=== PATIENT | male | born 1965 | race Caucasian/White ===

== ENCOUNTER 2019-10-07 06:17 | Outpatient (CLI) | payer BC, OTHER ==
[2019-10-07 10:31] VITALS: BMI 37.3
[2019-10-07 11:17] LABS: #Eosinphils 0.1 thou/uL (0.0-0.7); #Lymphocytes 1.5 thou/uL (1.20-3.40); #Monocytes 0.6 thou/uL (0.11-0.59); #Neutrophils 4.9 thou/uL (1.40-6.50); %Basophils 0.2 % (0.0-1.0); %Eosinophils 1.3 % (0.0-10.0); %Lymphocytes 21.5 % (21.0-51.0); %Monocytes 8.5 % (0.0-10.0); %Neutrophils 68.6 % (42.0-75.0); Mean Corpuscular HGB CONC 34.6 g/dL (32.0-36.0); Mean Corpuscular Hemoglobin 32.4 pg (27.0-31.0); Mean Corpuscular Volume 93.7 fL (78.0-98.0); Mean Platelet Volume 7.9 fL (7.4-10.4); Platelet Count 238 thou/uL (130-400); Red Blood Cell (RBC) Count 4.93 mill/uL (4.70-6.10); White Blood Cell (WBC) Count 7.1 thou/uL (4.8-10.8)
[2019-10-07 11:24] LABS: INR-International Normal Ratio 1.4; Prothrombin Time 17.4 sec (12.0-14.7)
[2019-10-07 11:25] LABS: PTT 34.4 SEC (22.9-36.1)
[2019-10-07 11:37] LABS: Anion Gap 15 mmol/L (10-20); BUN (Urea Nitrogen) 23 mg/dL (8.4-25.7); Calc. Creatinine Clearance 153 mL/min (70-130); Calcium 9.1 mg/dL (7.8-10.44); Carbon Dioxide 21 mmol/L (22-29); Chloride 108 mmol/L (98-107); Estimated GFR-MDRD 87; Glucose 95 mg/dL (70-105); Potassium 4.5 mmol/L (3.5-5.1); Sodium 139 mmol/L (136-145)
[2019-10-07 17:21] LABS: SARS-CoV-2 MS2 Positive; SARS-CoV-2 N Gene Negative; SARS-CoV-2 S Gene Negative; SARS-CoV-2 orf1ab Negative
== END 2019-10-07 06:18 | disposition home or self-care (01) ==
LOC: LABBT 06:17
PROVIDERS: ATTEND Internal Medicine Cardiovascular Disease
DX: Z01.818 Encounter for other preprocedural examination (principal); Z11.59 Encounter for screening for other viral diseases; I48.91 Unspecified atrial fibrillation
CPT/HCPCS: 80048; 85025; 85610; 85730; 87635; 93005; 93010; U0003

== ENCOUNTER 2019-10-12 05:41 | Observation (INO) | payer BC ==
[2019-10-12] MEDS ORDERED: Heparin 10,000 UNITS/1 ML VIAL ONE ×2 (07:14→09:17)
[2019-10-12] MEDS ORDERED: Fentanyl 100 MCG/2 ML VIAL ONE ×4 (07:35→12:18)
[2019-10-12] MEDS ORDERED: Midazolam HCl 2 mg/2 ml Vial ONE (07:35)
[2019-10-12] MEDS ORDERED: Famotidine/PF 20 mg/2ml Vial ONE (07:37)
[2019-10-12] MEDS ORDERED: Phenylephrine 10 MG/ML VIAL ONE (08:15)
[2019-10-12] MEDS ORDERED: Heparin 25,000 units/D5W 500 ML ONE (09:17)
[2019-10-12] MEDS ORDERED: Isoproterenol 0.2 MG/1 ML AMP ONE (09:17)
[2019-10-12] MEDS ORDERED: Protamine Sulfate 50 MG/5 ML VIAL ONE ×2 (11:18→11:28)
[2019-10-12 13:31] VITALS: BMI 40.1
[2019-10-12] MEDS ORDERED: Furosemide 40 MG TAB PO PRN (13:38)
[2019-10-12] MEDS ORDERED: Potassium Chloride 20 MEQ TAB PO PRN (13:38)
[2019-10-12] MEDS ORDERED: Acetaminophen 325 MG TAB PO PRN (13:40)
[2019-10-12] MEDS ORDERED: Calcium Carbonate 500 MG ChewTAB PO PRN (13:40)
--- NOTE | 2019-10-12 13:45 | OP ---
DATE OF PROCEDURE: 10/12/2019 PROCEDURE PERFORMED: Electrophysiology study and radiofrequency ablation. ADDITIONAL REFERRING PHYSICIAN: Abhijeet Chavira MD. REASON FOR PROCEDURE: Mr. Robb is a 54-year-old man with history of persisting atrial fibrillation since 07/2018, recurrent despite amiodarone with significant symptoms. He has a history of negative workup with normal LVEF at 65% to 70% and negative stress test, on chronic Xarelto anticoagulation, here for pulmonary venous isolation procedure. DESCRIPTION OF PROCEDURE: The patient received general anesthesia by Anesthesia specialist. The left and right femoral venous area was prepped, draped, and accessed under ultrasound guidance x2 on both sides. On the left side, an 11-Wolof sheath was used to advance an intracardiac echocardiogram probe to the right atrium and was used to monitor the pericardial space, catheter manipulation, as well as transseptal access throughout the case. Also from the left side, a duo-Deca catheter was advanced to the CS and the right atrial positions. On the right side, initially two 8-Wolof short sheaths were introduced, through which a ThermoCool SFST catheter was advanced to the right atrium. 3D map of the right atrium, His bundle, CS, and right ventricular positions were achieved. Following that, the short sheaths were exchanged to two SL1 sheath as well as a Kadoka 45-degree sheath, which was used to perform a transseptal puncture under fluoroscopic and ultrasound monitoring. Prior to the puncture, IV heparin bolus was delivered and IV heparin drip was also initiated. ACT was checked periodically and heparin drip was adjusted to keep ACT over 350 throughout the case. Following that, the ThermoCool SFST catheter and the Lasso catheter were advanced to the left atrium. 3D map of left atrium was obtained and 2 left-sided pulmonary veins and 3 right-sided pulmonary veins were noted with an extra small middle right pulmonary vein seen. Following that, a pulmonary venous isolation was performed, isolating all 5 pulmonary veins, also a roof line was placed and the inferior line to obtain posterior wall isolation. Throughout the posterior wall manipulation, an esophageal echocardiogram probe was used to monitor temperatures to avoid excessive heating. Any heating was controlled with extra irrigation at that site. A total of 85 lesions placed at 40 carr. Total duration of ablation was 24 minutes and 33 seconds. Baseline EP study was performed at this point. The ablation catheter was advanced to the LV and VA pacing was performed, but no VA conduction was noted. The baseline intervals were RR 798, IA 191 milliseconds, QRS 93 milliseconds, QT 420 millisecond, AH 73 milliseconds, HV 48 milliseconds. Antegrade Wenckebach cycle length was 330 milliseconds. The AV anna ERP was 400/220 milliseconds on Isuprel. Isuprel was delivered for 20 mcg for 10 minutes. Any reconnections were re-ablated. Burst atrial pacing was performed at 751 milliseconds, did not reinduce any atrial arrhythmias. The catheter was removed from the left side. Heparin was stopped and reversed with protamine. Long sheaths were exchanged to short sheaths under ultrasound guidance. Vascade closure was performed in all 4 femoral venous access sites. At the end of the case, also the intracardiac echo did not reveal change in the baseline, no pericardial effusion, and cardiac silhouette did not change on fluoroscopy. CONCLUSION: 1. Successful isolation of 2 left pulmonary veins and 3 right pulmonary veins with the middle right pulmonary vein was also noted. 2. Posterior wall isolation was achieved with a roof and an inferior line. 3. No evidence of accessory pathway and no dual AV anna physiology was noted. 4. No VA conduction. 5. Normal AV anna function and His-Purkinje function otherwise. PLAN: Resume anticoagulation. Monitor for recurrent arrhythmias. Job ID: [id number]
[2019-10-12] MEDS ORDERED: Ergocalciferol 1.25 MG(50,000 UNITS) CAP PO SCH (14:00)
[2019-10-12] MEDS: Ketorolac Tromethamine 30 MG/ML VIAL IVP PRN ×2 (14:45→23:48)
[2019-10-12] MEDS ORDERED: Ondansetron PF 4 MG/2 ML Vial ONE (15:51)
[2019-10-12] MEDS ORDERED: Lidocaine 1% PF 5 ML VIAL ONE (15:51)
[2019-10-12] MEDS ORDERED: Ketorolac Tromethamine 30 MG/ML VIAL ONE (15:51)
[2019-10-12] MEDS ORDERED: EPHEDRINE 25 MG/5 ML SYRINGE ONE (15:51)
[2019-10-12] MEDS ORDERED: Rocuronium Bromide 10 MG/ML (10ML VIAL) ONE (15:51)
[2019-10-12] MEDS ORDERED: PROPOFOL 200 MG/20 ML VIAL ONE (15:51)
[2019-10-12] MEDS ORDERED: Metoclopramide HCl 10 MG/2 ML VIAL ONE (15:51)
[2019-10-12] MEDS ORDERED: PHENYLEPHRINE-NS 100 MCG/ML 10 ML SYRINGE ONE (15:51)
[2019-10-12] MEDS ORDERED: metFORMIN 500 MG TAB PO SCH (17:00)
[2019-10-12] MEDS: Sucralfate 1 GM TAB PO SCH ×2 (17:50→20:54)
[2019-10-12] MEDS: Propranolol 40 MG TAB PO SCH (20:54)
[2019-10-12] MEDS ORDERED: Rivaroxaban 10 MG TAB PO SCH (21:00)
--- NOTE | 2019-10-12 22:14 | EKG ---
Test Reason : POST ABLATION Blood Pressure : / mmHG Vent. Rate : 077 BPM Atrial Rate : 077 BPM P-R Int : 178 ms QRS Dur : 122 ms QT Int : 440 ms P-R-T Axes : 066 -73 035 degrees QTc Int : 497 ms Normal sinus rhythm Left axis deviation Left bundle branch block Abnormal ECG When compared with ECG of 07-OCT-2019 10:55, QT has lengthened Confirmed by Roe ZAMBRANO ([id number]) on 10/12/2019 10:14:07 PM Referred By: KYARA Confirmed By:Roe ZAMBRANO
[2019-10-13] MEDS: Sucralfate 1 GM TAB PO SCH (08:50)
[2019-10-13] MEDS: Propranolol 40 MG TAB PO SCH (08:50)
[2019-10-13] MEDS ORDERED: Allopurinol 300 MG TAB PO SCH (09:00)
[2019-10-13] MEDS ORDERED: Empagliflozin 25 MG TAB PO SCH (09:00)
[2019-10-13] MEDS ORDERED: Venlafaxine XR 37.5 MG CAP PO SCH (09:00)
[2019-10-13] MEDS ORDERED: Ezetimibe 10 MG TAB PO SCH (09:00)
[2019-10-13] MEDS ORDERED: Alogliptin 25 MG TAB PO SCH (09:00)
[2019-10-13] MEDS ORDERED: Naproxen 500 MG TAB PO PRN (09:00)
[2019-10-13 11:16] VITALS: BP 110/64; TEMP 98.1
--- NOTE | 2019-10-13 20:24 | DIS ---
DATE OF ADMISSION: 10/12/2019 DATE OF DISCHARGE: 10/13/2019 DIAGNOSIS: Atrial fibrillation. PROCEDURES PERFORMED: Include electrophysiology study and radiofrequency ablation for atrial fibrillation, 24 minutes ablation time, successful isolation of two left pulmonary veins and three right pulmonary veins with middle right pulmonary vein also noted, posterior wall isolation achieved. SUBJECTIVE: Mr. Robb is a 54-year-old gentleman with a history of persistent atrial fibrillation since July of 2018 despite amiodarone and significant symptoms. He had a normal EF of 65% to 70%. Negative stress test. He is currently on anticoagulation with Xarelto and was taken to the pulmonary venous isolation procedure on the as detailed above. He has not had any postablation complications, but did have some bleeding at his groin site that required an additional 30 minutes of pressure held despite using a Vascade closure system. This morning, he feels well. He has been out of bed, walking. Groin site has been stable overnight. He is eager to discharge home. Mr. Robb feels well. He denies any heart racing, palpitations, chest pain, pressure, syncope, near syncope, stroke, stroke-like symptoms, shortness of breath, difficulty urinating, or pain or discomfort at groin sites. OBJECTIVE: VITAL SIGNS: Most recent vital signs; temperature 97.4, pulse 64, blood pressure 104/65, respirations 16, and oxygen 93% on room air. GENERAL: The patient is alert and oriented. Speech is clear. His affect is appropriate. No apparent distress. Resting comfortably in bed. NECK: Large. There is no obvious jugular venous distention. difficult to visualize with his habitus. HEART: Rate is irregularly irregular with crisp S1 and S2. LUNGS: Clear to auscultation throughout. ABDOMEN: Obese, soft, and nontender. EXTREMITIES: Warm and dry to touch. Well perfused without clubbing, cyanosis, or edema. NEUROLOGIC: Grossly intact. Nonfocal. Gait is stable. SKIN: Bilateral groin sites are stable with freshly replaced dressings. A small hematoma is palpable in the right groin, but has been present since postablation yesterday without change in size or growing. DISCHARGE MEDICATIONS: Medications at discharge include; 1. Vitamin D as previously taken 25 mg daily. 2. Zyloprim one tablet daily. 3. Naproxen p.r.n. 4. Effexor 2 tablets daily. 5. Xarelto 20 mg q.p.m. 6. Inderal 40 mg b.i.d. 7. Januvia 100 mg daily. 8. Glumetza 1000 mg q.p.m. 9. Protonix 40 mg daily. Prescriptions provided; 1. Protonix 40 mg daily for 30 days. 2. Carafate 1 g p.o. before meals and at bedtime x2 weeks. 3. Furosemide 40 mg p.o. p.r.n. edema, shortness breath, or fluid retention to be taken with potassium chloride 20 mEq. CONDITION AT DISCHARGE: Stable. DISCHARGE INSTRUCTIONS: Follow up in 6 weeks. No missed dose with Xarelto. Contact [facility] with any postablation concerns. Telemetry and EKG shows sinus rhythm. Job ID: [id number]
== END 2019-10-13 11:50 | disposition home or self-care (01) ==
LOC: CCL 05:41 → 2NO 11:18
PROVIDERS: ADMIT Internal Medicine Cardiovascular Disease; ATTEND Internal Medicine Cardiovascular Disease
PROC: 02583ZZ Destruction of Conduction Mechanism, Percutaneous Approach (ICD-10-PCS; principal; 2019-10-12)
PROC: 02K83ZZ Map Conduction Mechanism, Percutaneous Approach (ICD-10-PCS; 2019-10-12)
PROC: 4A023FZ Measurement of Cardiac Rhythm, Percutaneous Approach (ICD-10-PCS; 2019-10-12)
PROC: 4A0234Z Measurement of Cardiac Electrical Activity, Percutaneous Approach (ICD-10-PCS; 2019-10-12)
DX: I48.19 Other persistent atrial fibrillation (principal); Z79.01 Long term (current) use of anticoagulants; Z79.1 Long term (current) use of non-steroidal anti-inflammatories (NSAID); Z79.84 Long term (current) use of oral hypoglycemic drugs; Z79.899 Other long term (current) drug therapy; Z88.5 Allergy status to narcotic agent; Z88.8 Allergy status to other drugs, medicaments and biological substances; Z98.1 Arthrodesis status
CPT/HCPCS: 36416; 76942; 85347; 93005; 93010; 93613; 93622; 93623; 93656; 96374; 96376; C1731; C1732; C1759; C1769; G0378; J1644; J1885; J2001; J2250; J2370; J2405; J2704; J2720; J2765; J3010; S0028

== ENCOUNTER 2021-05-09 18:10 | Inpatient (IN) | payer BC ==
[2021-05-09] MEDS ORDERED: Acetaminophen 325 MG TAB PO PRN (22:10)
[2021-05-09] MEDS ORDERED: Dextrose 50% Abboject 50 ML SYRINGE SLOW IVP PRN (22:13)
[2021-05-09] MEDS ORDERED: HumaLOG 300 UNITS/3 ML VIAL SC PRN (22:13)
[2021-05-09] MEDS ORDERED: Dextrose 5% in Water 1,000 ML IV PRN (22:13)
[2021-05-09 22:58] VITALS: BMI 35.4
[2021-05-09] MEDS ORDERED: hydrOXYzine 25 MG TAB PO SCH (23:15)
[2021-05-09] MEDS ORDERED: DULoxetine 60 MG CAP PO SCH (23:15)
[2021-05-09] MEDS: Diltiazem 125 MG in Sodium Chloride 0.9% 100 ML IVPB SCH (23:40)
[2021-05-09 23:58] LABS: #Eosinphils 0.2 thou/uL (0.0-0.7); #Lymphocytes 1.4 thou/uL (1.20-3.40); #Monocytes 0.6 thou/uL (0.11-0.59); #Neutrophils 4.8 thou/uL (1.40-6.50); %Basophils 0.3 % (0.0-1.0); %Eosinophils 2.3 % (0.0-10.0); %Lymphocytes 19.6 % (21.0-51.0); %Monocytes 8.7 % (0.0-10.0); Hemoglobin 14.2 g/dL (14.0-18.0); Mean Corpuscular HGB CONC 35.2 g/dL (32.0-36.0); Mean Corpuscular Hemoglobin 33.7 pg (27.0-31.0); Mean Corpuscular Volume 95.6 fL (78.0-98.0); Mean Platelet Volume 7.6 fL (7.4-10.4); Platelet Count 203 thou/uL (130-400); RBC Distribution Width 12.9 % (11.5-14.5); Red Blood Cell (RBC) Count 4.23 mill/uL (4.70-6.10); White Blood Cell (WBC) Count 6.9 thou/uL (4.8-10.8)
[2021-05-10 00:19] LABS: Anion Gap 9 mmol/L (10-20); BUN (Urea Nitrogen) 15 mg/dL (8.4-25.7); Calc. Creatinine Clearance 175 mL/min (70-130); Calcium 8.6 mg/dL (7.8-10.44); Carbon Dioxide 22 mmol/L (22-29); Chloride 113 mmol/L (98-107); Glucose 149 mg/dL (70-105); Magnesium 1.8 mg/dL (1.6-2.6); Potassium 4.1 mmol/L (3.5-5.1); Sodium 140 mmol/L (136-145)
[2021-05-10 00:23] LABS: Troponin I 0.031 ng/mL (< 0.028)
[2021-05-10 02:49] LABS: #Eosinphils 0.2 thou/uL (0.0-0.7); #Lymphocytes 1.4 thou/uL (1.20-3.40); #Monocytes 0.6 thou/uL (0.11-0.59); #Neutrophils 4.6 thou/uL (1.40-6.50); %Basophils 0.4 % (0.0-1.0); %Eosinophils 2.5 % (0.0-10.0); %Lymphocytes 20.6 % (21.0-51.0); %Neutrophils 67.5 % (42.0-75.0); Hemoglobin 14.3 g/dL (14.0-18.0); Mean Corpuscular HGB CONC 34.5 g/dL (32.0-36.0); Mean Corpuscular Volume 95.5 fL (78.0-98.0); Mean Platelet Volume 7.3 fL (7.4-10.4); Platelet Count 189 thou/uL (130-400); RBC Distribution Width 12.8 % (11.5-14.5); Red Blood Cell (RBC) Count 4.32 mill/uL (4.70-6.10); White Blood Cell (WBC) Count 6.8 thou/uL (4.8-10.8)
[2021-05-10 03:03] LABS: Troponin I 0.021 ng/mL (< 0.028)
[2021-05-10 03:05] LABS: Anion Gap 11 mmol/L (10-20); BUN (Urea Nitrogen) 14 mg/dL (8.4-25.7); Calc. Creatinine Clearance 211 mL/min (70-130); Calcium 8.9 mg/dL (7.8-10.44); Carbon Dioxide 21 mmol/L (22-29); Chloride 111 mmol/L (98-107); Glucose 106 mg/dL (70-105); Magnesium 1.8 mg/dL (1.6-2.6); Sodium 139 mmol/L (136-145)
[2021-05-10] MEDS ORDERED: Magnesium Oxide 400 MG TAB PO SCH (03:45)
[2021-05-10 05:21] LABS: Troponin I 0.024 ng/mL (< 0.028)
[2021-05-10] MEDS ORDERED: Magnesium 2 GM/50 ML 2 GM in Premix Bag 1 BAG IVPB SCH (09:00)
[2021-05-10] MEDS: Atorvastatin Calcium 40 MG TAB PO SCH (09:08)
[2021-05-10] MEDS: Ezetimibe 10 MG TAB PO SCH (09:08)
[2021-05-10] MEDS: Polyethylene Glycol 3350 17 GM Packet PO SCH ×2 (09:08→09:16)
[2021-05-10] MEDS: Propranolol 40 MG TAB PO SCH ×2 (09:13→20:38)
[2021-05-10 11:23] LABS: SARS-CoV-2 PCR by NAA Not Detected (NotDetected)
[2021-05-10] MEDS: Rivaroxaban 10 MG TAB PO SCH (17:57)
[2021-05-10] MEDS ORDERED: Electrolyte Replacement Protocol 1 EACH FS SCH (18:00)
[2021-05-10] MEDS ORDERED: Acetaminophen/Codeine 30-300mg Tablet PO PRN (20:37)
[2021-05-10] MEDS: Senokot S 8.6-50 MG TAB PO SCH (20:38)
[2021-05-10] MEDS: DULoxetine 60 MG CAP PO SCH (20:38)
[2021-05-10] MEDS: Ondansetron PF 4 MG/2 ML Vial IVP PRN (20:47)
[2021-05-10] MEDS ORDERED: hydrOXYzine 25 MG TAB PO SCH (21:00)
[2021-05-11] MEDS: Acetaminophen/Codeine 30-300mg Tablet PO PRN ×3 (02:30→15:09)
[2021-05-11 04:40] LABS: #Eosinphils 0.2 thou/uL (0.0-0.7); #Lymphocytes 1.3 thou/uL (1.20-3.40); #Monocytes 0.5 thou/uL (0.11-0.59); #Neutrophils 5.6 thou/uL (1.40-6.50); %Basophils 0.3 % (0.0-1.0); %Eosinophils 2.9 % (0.0-10.0); %Lymphocytes 17.4 % (21.0-51.0); %Monocytes 6.8 % (0.0-10.0); %Neutrophils 72.6 % (42.0-75.0); Hemoglobin 16.6 g/dL (14.0-18.0); Mean Corpuscular HGB CONC 32.9 g/dL (32.0-36.0); Mean Corpuscular Hemoglobin 31.9 pg (27.0-31.0); Mean Corpuscular Volume 96.7 fL (78.0-98.0); Mean Platelet Volume 7.5 fL (7.4-10.4); Platelet Count 188 thou/uL (130-400); RBC Distribution Width 12.7 % (11.5-14.5); Red Blood Cell (RBC) Count 5.21 mill/uL (4.70-6.10); White Blood Cell (WBC) Count 7.7 thou/uL (4.8-10.8)
[2021-05-11 04:41] LABS: Anion Gap 13 mmol/L (10-20); BUN (Urea Nitrogen) 15 mg/dL (8.4-25.7); Calc. Creatinine Clearance 172 mL/min (70-130); Calcium 8.6 mg/dL (7.8-10.44); Carbon Dioxide 22 mmol/L (22-29); Chloride 107 mmol/L (98-107); Glucose 136 mg/dL (70-105); Magnesium 1.9 mg/dL (1.6-2.6); Potassium 4.3 mmol/L (3.5-5.1); Sodium 138 mmol/L (136-145)
[2021-05-11] MEDS ORDERED: Magnesium 2 GM/50 ML 2 GM in Premix Bag 1 BAG IVPB SCH (05:15)
[2021-05-11] MEDS: Ezetimibe 10 MG TAB PO SCH (08:52)
[2021-05-11] MEDS: Atorvastatin Calcium 40 MG TAB PO SCH (08:52)
[2021-05-11] MEDS: Polyethylene Glycol 3350 17 GM Packet PO SCH (08:52)
[2021-05-11] MEDS: Allopurinol 300 MG TAB PO SCH (08:52)
[2021-05-11] MEDS: Senokot S 8.6-50 MG TAB PO SCH ×2 (08:52→21:56)
[2021-05-11] MEDS: Empagliflozin 25 MG TAB PO SCH (08:53)
[2021-05-11] MEDS: Propranolol 40 MG TAB PO SCH ×2 (08:53→21:56)
[2021-05-11] MEDS: Alogliptin 25 MG TAB PO SCH (08:53)
[2021-05-11] MEDS: HumaLOG 300 UNITS/3 ML VIAL SC PRN (11:01)
[2021-05-11] MEDS: Ondansetron PF 4 MG/2 ML Vial IVP PRN (15:30)
[2021-05-11] MEDS: Rivaroxaban 10 MG TAB PO SCH (17:46)
[2021-05-11] MEDS ORDERED: hydrOXYzine 25 MG TAB PO PRN (18:49)
[2021-05-11] MEDS: Diltiazem 125 MG in Sodium Chloride 0.9% 100 ML IVPB SCH (21:55)
[2021-05-11] MEDS: DULoxetine 60 MG CAP PO SCH (21:56)
[2021-05-12] MEDS: Acetaminophen/Codeine 30-300mg Tablet PO PRN (08:39)
[2021-05-12] MEDS: Senokot S 8.6-50 MG TAB PO SCH ×2 (08:40→21:02)
[2021-05-12] MEDS: Propranolol 40 MG TAB PO SCH ×2 (08:40→21:02)
[2021-05-12] MEDS: Allopurinol 300 MG TAB PO SCH (08:40)
[2021-05-12] MEDS: Ezetimibe 10 MG TAB PO SCH (08:40)
[2021-05-12] MEDS: Atorvastatin Calcium 40 MG TAB PO SCH (08:40)
[2021-05-12] MEDS: Polyethylene Glycol 3350 17 GM Packet PO SCH (08:40)
[2021-05-12] MEDS: Empagliflozin 25 MG TAB PO SCH (08:40)
[2021-05-12] MEDS: Alogliptin 25 MG TAB PO SCH (08:41)
[2021-05-12 09:08] LABS: #Basophils 0.1 thou/uL (0.0-0.2); #Eosinphils 0.2 thou/uL (0.0-0.7); #Lymphocytes 1.5 thou/uL (1.20-3.40); #Monocytes 0.7 thou/uL (0.11-0.59); #Neutrophils 5.9 thou/uL (1.40-6.50); %Basophils 0.8 % (0.0-1.0); %Eosinophils 1.9 % (0.0-10.0); %Lymphocytes 18.2 % (21.0-51.0); %Monocytes 8.1 % (0.0-10.0); Hemoglobin 18.6 g/dL (14.0-18.0); Mean Corpuscular HGB CONC 33.6 g/dL (32.0-36.0); Mean Corpuscular Hemoglobin 31.6 pg (27.0-31.0); Mean Corpuscular Volume 93.9 fL (78.0-98.0); Mean Platelet Volume 7.4 fL (7.4-10.4); Platelet Count 194 thou/uL (130-400); Platelet Morphology Comment Appears Adequate; Red Blood Cell (RBC) Count 5.89 mill/uL (4.70-6.10); White Blood Cell (WBC) Count 8.2 thou/uL (4.8-10.8)
[2021-05-12 09:10] LABS: MDiff Complete? YES
[2021-05-12] MEDS: HumaLOG 300 UNITS/3 ML VIAL SC PRN (11:23)
[2021-05-12] MEDS: Fioricet 325/50/40 mg Tablet PO PRN ×2 (16:00→23:19)
[2021-05-12] MEDS: Rivaroxaban 10 MG TAB PO SCH (16:01)
[2021-05-12 17:04] LABS: Anion Gap 14 mmol/L (10-20); BUN (Urea Nitrogen) 18 mg/dL (8.4-25.7); Calc. Creatinine Clearance 150 mL/min (70-130); Calcium 9.5 mg/dL (7.8-10.44); Carbon Dioxide 23 mmol/L (22-29); Chloride 104 mmol/L (98-107); Glucose 130 mg/dL (70-105); Potassium 4.6 mmol/L (3.5-5.1); Sodium 136 mmol/L (136-145)
[2021-05-12] MEDS: DULoxetine 60 MG CAP PO SCH (21:02)
[2021-05-12] MEDS: Diltiazem 125 MG in Sodium Chloride 0.9% 100 ML IVPB SCH (21:03)
[2021-05-13 08:15] LABS: Anion Gap 13 mmol/L (10-20); BUN (Urea Nitrogen) 20 mg/dL (8.4-25.7); Calc. Creatinine Clearance 155 mL/min (70-130); Calcium 9.2 mg/dL (7.8-10.44); Carbon Dioxide 23 mmol/L (22-29); Chloride 106 mmol/L (98-107); Glucose 126 mg/dL (70-105); Potassium 4.6 mmol/L (3.5-5.1); Sodium 137 mmol/L (136-145)
[2021-05-13] MEDS ORDERED: Heparin 25,000 units/D5W 500 ML ONE (10:08)
[2021-05-13] MEDS ORDERED: Heparin 10,000 UNITS/ 10 ML VIAL ONE ×2 (10:08→10:47)
[2021-05-13] MEDS ORDERED: Lidocaine 1% (PF) 30 ML VIAL ONE (10:09)
[2021-05-13] MEDS ORDERED: DOPamine 400 MG/D5W 250 ML 0 ML ONE (10:09)
[2021-05-13] MEDS: Ezetimibe 10 MG TAB PO SCH (10:52)
[2021-05-13] MEDS: Allopurinol 300 MG TAB PO SCH (10:52)
[2021-05-13] MEDS: Atorvastatin Calcium 40 MG TAB PO SCH (10:52)
[2021-05-13] MEDS: Alogliptin 25 MG TAB PO SCH (10:52)
[2021-05-13] MEDS: Empagliflozin 25 MG TAB PO SCH (10:52)
[2021-05-13] MEDS: Polyethylene Glycol 3350 17 GM Packet PO SCH (10:53)
[2021-05-13] MEDS: Senokot S 8.6-50 MG TAB PO SCH ×2 (10:53→21:21)
[2021-05-13] MEDS: Propranolol 40 MG TAB PO SCH ×2 (10:53→21:20)
[2021-05-13] MEDS ORDERED: Phenylephrine 10 MG/ML VIAL ONE (11:20)
[2021-05-13] MEDS ORDERED: Fentanyl 100 MCG/2 ML VIAL ONE ×2 (11:20→11:22)
[2021-05-13] MEDS ORDERED: SUGAMMADEX SODIUM 200 MG/2 ML VIAL ONE (11:22)
[2021-05-13] MEDS ORDERED: Midazolam HCl 2 mg/2 ml Vial ONE (11:22)
[2021-05-13] MEDS ORDERED: Lidocaine 1% PF 5 ML VIAL ONE (11:33)
[2021-05-13] MEDS ORDERED: PROPOFOL 200 MG/20 ML VIAL ONE (11:33)
[2021-05-13] MEDS ORDERED: Ondansetron PF 4 MG/2 ML Vial ONE (11:33)
[2021-05-13] MEDS ORDERED: Rocuronium Bromide 10 MG/ML (10ML VIAL) ONE (11:33)
[2021-05-13] MEDS ORDERED: Isoproterenol 0.2 MG/1 ML AMP ONE (13:47)
[2021-05-13] MEDS ORDERED: Protamine Sulfate 50 MG/5 ML VIAL ONE (14:33)
[2021-05-13] MEDS ORDERED: Ketorolac Tromethamine 30 MG/ML VIAL IVP PRN (16:14)
[2021-05-13] MEDS: Sucralfate 1 GM TAB PO SCH (19:49)
[2021-05-13] MEDS ORDERED: Rivaroxaban 10 MG TAB PO SCH (21:00)
[2021-05-13] MEDS: DULoxetine 60 MG CAP PO SCH (21:20)
[2021-05-14] MEDS: Sucralfate 1 GM TAB PO SCH ×2 (00:06→05:37)
[2021-05-14 05:43] LABS: Anion Gap 13 mmol/L (10-20); BUN (Urea Nitrogen) 27 mg/dL (8.4-25.7); Calc. Creatinine Clearance 119 mL/min (70-130); Calcium 8.6 mg/dL (7.8-10.44); Carbon Dioxide 24 mmol/L (22-29); Chloride 104 mmol/L (98-107); Glucose 158 mg/dL (70-105); Potassium 4.2 mmol/L (3.5-5.1); Sodium 137 mmol/L (136-145)
[2021-05-14] MEDS: Propranolol 40 MG TAB PO SCH (08:41)
[2021-05-14] MEDS: Ezetimibe 10 MG TAB PO SCH (08:42)
[2021-05-14] MEDS: Atorvastatin Calcium 40 MG TAB PO SCH (08:42)
[2021-05-14] MEDS: Allopurinol 300 MG TAB PO SCH (08:42)
[2021-05-14] MEDS: Senokot S 8.6-50 MG TAB PO SCH (08:43)
[2021-05-14] MEDS: Alogliptin 25 MG TAB PO SCH (08:43)
[2021-05-14] MEDS: Empagliflozin 25 MG TAB PO SCH (08:43)
[2021-05-14] MEDS: Polyethylene Glycol 3350 17 GM Packet PO SCH (08:44)
[2021-05-14] MEDS ORDERED: Potassium Chloride 20 MEQ TAB PO PRN ×2 (09:17→09:20)
[2021-05-14] MEDS ORDERED: Furosemide 40 MG TAB PO PRN (09:17)
[2021-05-14] MEDS ORDERED: Sucralfate 1 GM TAB PO SCH (11:30)
[2021-05-14 16:11] VITALS: BP 135/71; TEMP 98.9
== END 2021-05-14 16:16 | disposition home or self-care (01) | DRG 274 ==
LOC: 2NO 20:09 → INTOOBSV 20:09 → OBSVTOIN 05-10 04:19
PROVIDERS: ADMIT Family Medicine; ATTEND Internal Medicine
PROC: 5A2204Z Restoration of Cardiac Rhythm, Single (ICD-10-PCS; 2021-05-10)
PROC: 02583ZZ Destruction of Conduction Mechanism, Percutaneous Approach (ICD-10-PCS; principal; 2021-05-13)
PROC: B24BZZ4 Ultrasonography of Heart with Aorta, Transesophageal (ICD-10-PCS; 2021-05-13)
PROC: 4A023FZ Measurement of Cardiac Rhythm, Percutaneous Approach (ICD-10-PCS; 2021-05-13)
PROC: 4A0234Z Measurement of Cardiac Electrical Activity, Percutaneous Approach (ICD-10-PCS; 2021-05-13)
PROC: 02K83ZZ Map Conduction Mechanism, Percutaneous Approach (ICD-10-PCS; 2021-05-13)
DX: I47.1 Supraventricular tachycardia (principal); I31.3 Pericardial effusion (noninflammatory); Z20.822 Contact with and (suspected) exposure to COVID-19; E11.9 Type 2 diabetes mellitus without complications; E78.5 Hyperlipidemia, unspecified; F41.9 Anxiety disorder, unspecified; G43.909 Migraine, unspecified, not intractable, without status migrainosus; K59.00 Constipation, unspecified; E83.42 Hypomagnesemia; M10.9 Gout, unspecified; I48.3 Typical atrial flutter; I48.19 Other persistent atrial fibrillation; I44.1 Atrioventricular block, second degree; Z88.5 Allergy status to narcotic agent; Z88.8 Allergy status to other drugs, medicaments and biological substances; Z79.899 Other long term (current) drug therapy; Z82.3 Family history of stroke; Z84.1 Family history of disorders of kidney and ureter; Z82.49 Family history of ischemic heart disease and other diseases of the circulatory system; Z98.890 Other specified postprocedural states; Z79.84 Long term (current) use of oral hypoglycemic drugs; Z79.01 Long term (current) use of anticoagulants
CPT/HCPCS: 36415; 36416; 70450; 80048; 83735; 84443; 84484; 85025; 85347; 93005; 93010; 93306; 93312; 93613; 93623; 93656; 93657; 93662; C1732; C1759; C1776; C1884; G0378; J1265; J1644; J1815; J1885; J2001; J2250; J2370; J2405; J2704; J2720; J3010; J3475; J3490; U0003; U0005